=== PATIENT | female | born 1960 | race Asian ===

== ENCOUNTER 2020-05-27 19:09 | Emergency (ER) | payer OTHER ==
[~2020-05-27] VITALS: Ht 165.1 cm; Wt 56.8 kg
[2020-05-27 21:05] VITALS: BP 150/95
== END 2020-05-27 22:02 | disposition home or self-care (01) ==
LOC: EMS 19:12
DX: M54.5 Low back pain (principal); M25.551 Pain in right hip; M25.552 Pain in left hip; G89.29 Other chronic pain; F17.210 Nicotine dependence, cigarettes, uncomplicated; V43.52XA Car driver injured in collision with other type car in traffic accident, initial encounter; Y93.89 Activity, other specified; Y92.89 Other specified places as the place of occurrence of the external cause; Y99.8 Other external cause status
CPT/HCPCS: 72100; 72170; 99284; Z7502